=== PATIENT | female | born 1955 | race African-American/Black ===

== ENCOUNTER → 2016-11-08 | Outpatient (CLI) | payer BC ==
--- NOTE | 2016-11-09 12:19 | WOMENS IMAGING REPORT ---
EXAM DESCRIPTION: BILAT SCREENING MAMMO W/CAD COMPLETED DATE/TIME: 11/08/2016 9:34 am REASON FOR STUDY: SCREENING MAMMO Z12.31 ENCNTR SCREEN MAMMOGRAM FOR MALIGNANT NEOPLASM OF KIRSTEN COMPARISON: Multiple since 2009 TECHNIQUE: Standard craniocaudal and mediolateral oblique views of each breast recorded using digita l acquisition. LIMITATIONS: None. FINDINGS: No masses, calcifications or architectural distortion. No areas of suspicion. Read with the assistance of CAD. .[facility] - R2 Cenova Version 1.3 .[facility] Imaging - R2 Cenova Version 1.3 .[facility] - R2 Cenova Version 2.4 .[facility] [place] R2 Cenova Version 2.4 .[facility] - R2 Wood Chopper Version 9.2 IMPRESSION: NORMAL MAMMOGRAM. BIRADS 1. BREAST DENSITY: b. There are scattered areas of fibroglandular density. BIRAD: 1 NEGATIVE RECOMMENDATION: ROUTINE SCREENING Please consider bilateral screening tomosynthesis in October 2017 COMMENT: The patient has been notified of the results by letter per SA requirements. Additional no tification policies are in place for contacting patient with suspicious or incomplete findings. Quality ID #[id number]: The [employer] recommends an annual screening mammogram for women aged 40 years or over. This facility utilizes a reminder system to ensure that all patients receive reminder letters, and/or direct phone calls for appointments. This includes reminders for routine scr eening mammograms, diagnostic mammograms, or other Breast Imaging Interventions when appropriate. Th is patient will be placed in the appropriate reminder system. The [employer] (ACR) has developed recommendations for screening MRI of the breast s in certain patient populations, to be used in conjunction with mammography. Breast MRI surveillanc e may be appropriate for women with more than 20% lifetime risk of developing breast cancer as deter mined by genetic testing, significant family history of the disease, or history of mantle radiation f or Hodgkins Disease. ACR Practice Guidelines 2008. TECHNICAL DOCUMENTATION: FINDING NUMBER: (1) ASSESSMENT: (1) JOB ID: [id number] [employer]- All Rights Reserved
== END ==
LOC: WI 09:17
PROVIDERS: ATTEND Physician Assistant
DX: Z12.31 Encounter for screening mammogram for malignant neoplasm of breast (principal)
CPT/HCPCS: 77067; G0202

== ENCOUNTER 2018-01-09 00:01 | Emergency (ER) | payer SELFPAY ==
--- NOTE | 2018-01-09 01:47 | RADIOLOGY REPORT (SQ) ---
PROCEDURE: X-RAY CHEST TWO VIEWS CLINICAL HISTORY: syncope INDICATION: Same as above COMPARISON: None TECHNIQUE: The study was done on 01/09/2018 at 1:57 AM PA and and lateral chest radiographs were obtained. FINDINGS: The lung hernandez are well inflated. There are no discrete airspace infiltrates, pneumothoraces or pleural effusions. The pulmonary vascularity is normal The cardiomediastinal silhouette is unremarkable for patient's age and sex. IMPRESSION: There is no acute pleural-parenchymal process seen in the imaged lung hernandez. Place of interpretation: [facility].
--- NOTE | 2018-01-09 01:49 | RADIOLOGY REPORT (SQ) ---
EXAM DESCRIPTION: XR ELBOW 3 VIEWS COMPLETED DATE/TME: 01/09/2018 00:51 CLINICAL HISTORY: 62 years, Female, elbow wrist pain after fall COMPARISON: None. NUMBER OF VIEWS: Three TECHNIQUE: Three views of the right elbow were done LIMITATIONS: None. FINDINGS: There is no gross evidence of acute fractures involving the right elbow joint. However there is presence of a positive posterior fat-pad sign suspicious for occult fracture involving the right elbow joint. Degenerative osteophyte formation is seen along the coronoid process of the proximal right ulna IMPRESSION: There is no gross evidence of acute fractures involving the right elbow joint. However there is presence of a positive posterior fat-pad sign suspicious for occult fracture involving the right elbow joint, which can be further assessed with a dedicated CT examination of the right elbow. 2011 [employer]- All Rights Reserved
--- NOTE | 2018-01-09 01:50 | RADIOLOGY REPORT (SQ) ---
EXAM DESCRIPTION: XR WRIST 3 OR MORE VIEWS BILATERAL COMPLETED DATE/TME: 01/09/2018 00:51 CLINICAL HISTORY: 62 years, Female, syncope COMPARISON: None. NUMBER OF VIEWS: Three TECHNIQUE: Three views of the right wrist were done LIMITATIONS: None. FINDINGS: There is no fracture or dislocation involving the bones of the right wrist joint. The soft tissues are unremarkable IMPRESSION: Negative for acute bony trauma involving the right wrist 2010 [employer]- All Rights Reserved
[2018-01-09] MEDS ORDERED: KETOROLAC TROMETHAMINE INJ/PF 30 MG/1 ML SDV IV ONE (01:56)
[2018-01-09 02:08] LABS: ABSOLUTE BASOPHILS # (AUTO) 0.1 10^3/uL (0.0-0.2); ABSOLUTE EOSINOPHILS # (AUTO) 0.1 10^3/uL (0.0-0.6); ABSOLUTE NEUT (AUTO) 11.6 10^3/uL (1.7-8.2); BASOPHILS % (AUTO) 0.5 % (0-2); EOSINOPHILS % (AUTO) 0.8 % (0-6); HEMATOCRIT 38.2 % (36.0-47.0); HEMOGLOBIN 13.1 g/dL (12.0-15.5); LYMPHOCYTES % (AUTO) 7.2 % (13-45); MEAN CORPUSCULAR HEMOGLOBIN 30.7 pg (27.0-33.4); MEAN CORPUSCULAR HGB CONC 34.2 g/dL (32.0-36.0); MEAN CORPUSCULAR VOLUME 90 fl (80-97); MONOCYTES % (AUTO) 7.4 % (3-13); PLATELET COUNT 360 10^3/uL (150-450); RED BLOOD COUNT 4.25 10^6/uL (3.72-5.28); RED CELL DISTRIBUTION WIDTH 12.8 % (11.5-14.0); SEGMENTED NEUTROPHILS % (AUTO) 84.1 % (42-78); TOTAL CELLS COUNTED % (AUTO) 100 %; WHITE BLOOD COUNT 13.8 10^3/uL (4.0-10.5)
[2018-01-09 02:20] LABS: ANION GAP 13 (5-19); BLOOD UREA NITROGEN 15 mg/dL (7-20); CALCIUM 9.8 mg/dL (8.4-10.2); CARBON DIOXIDE 27 mmol/L (22-30); CHLORIDE 99 mmol/L (98-107); GLUCOSE 113 mg/dL (75-110); POTASSIUM 3.7 mmol/L (3.6-5.0); SODIUM 139.1 mmol/L (137-145)
--- NOTE | 2018-01-09 02:56 | RADIOLOGY REPORT (SQ) ---
CLINICAL HISTORY: fu xray with fat pad occult fx? COMPARISON: None. TECHNIQUE: CT UPPER EXTREMITY WITHOUT IV CONTRAST on 01/09/2018 1:57 AM CDT This exam was performed according to our departmental dose-optimization program, which includes automated exposure control, adjustment of the mA and/or kV according to patient size and/or use of iterative reconstruction technique. FINDINGS: There are no acute osseous findings. No suspicious bony lesions. Elbow joint is maintained with no significant degenerative changes. Surrounding soft tissues are unremarkable. IMPRESSION: No definite acute fracture.
--- NOTE | 2018-01-09 03:19 | ER Document Report ---
ED General - General Chief Complaint: Elbow Injury Stated Complaint: ELBOW PAIN Time Seen by Provider: 01/09/18 00:44 TRAVEL OUTSIDE OF THE [place] IN LAST 30 DAYS: No - HPI Patient complains to provider of: Syncope right elbow pain Notes: Patient coming in for chronic right elbow pain ongoing for the last 2-3 weeks. Patient states she had a fall approximately 3 weeks ago since that time significant right elbow pain. Patient states tonight when she was getting off the couch had again another severe episode of right elbow pain causing her to pass out patient states helped to the floor by her patient denies any hip pain chest pain abdominal pain prior to after during this episode. Patient otherwise denies any past medical history patient states she is uninsured therefore it is not seen a physician in quite some time. Patient otherwise is resting comfortably upon my evaluation denies any recent travel denies any fever chills nausea vomiting diarrhea - Related Data Allergies/Adverse Reactions: codeine [Codeine] Allergy (Verified 08/18/11 10:37) Past Medical History - Social History Smoking Status: Never Smoker Chew tobacco use (# tins/day): No Frequency of alcohol use: Rare Drug Abuse: None Family History: Reviewed & Not Pertinent Patient has suicidal ideation: No Patient has homicidal ideation: No - Past Medical History Cardiac Medical History: Reports: Hx Hypertension Renal/ Medical History: Denies: Hx Peritoneal Dialysis Review of Systems - Review of Systems Constitutional: No symptoms reported EENT: No symptoms reported Cardiovascular: Syncope Respiratory: No symptoms reported Gastrointestinal: No symptoms reported Genitourinary: No symptoms reported Female Genitourinary: No symptoms reported Musculoskeletal: Other - Right elbow pain Skin: No symptoms reported Hematologic/Lymphatic: No symptoms reported Neurological/Psychological: No symptoms reported -: Yes All other systems reviewed and negative Physical Exam - Vital signs Vitals: Temp Pulse Resp BP Pulse Ox 98.8 F 72 18 144/74 H 100 01/09/18 00:15 01/09/18 00:15 01/09/18 00:15 01/09/18 00:15 01/09/18 00:15 Interpretation: Normal - General General appearance: Appears well, Alert - HEENT Head: Normocephalic, Atraumatic Eyes: Normal Pupils: PERRL - Respiratory Respiratory status: No respiratory distress Chest status: Nontender Breath sounds: Normal Chest palpation: Normal - Cardiovascular Rhythm: Regular Heart sounds: Normal auscultation Murmur: No - Abdominal Inspection: Normal Distension: No distension Bowel sounds: Normal Tenderness: Nontender Organomegaly: No organomegaly - Back Back: Normal, Nontender - Extremities General upper extremity: Normal color, Normal temperature, Other - Left arm is unaffected. Patient has tenderness to palpation of the right elbow right wrist patient has decreased plastic roller strength because she states often the right elbow pain. Decreased range of motion at the elbow and at the wrist. Patient does have pulses and sensation distal to the elbow radial pulse or pulse felt the wrist. Slight swelling to the proximal posterior forearm difficult time doing pronating and supinating. No: Normal inspection General lower extremity: Normal inspection, Nontender, Normal color, Normal ROM , Normal temperature, Normal weight bearing. No: Sabra's sign - Neurological Neuro grossly intact: Yes Cognition: Normal Orientation: AAOx4 [place] Coma Scale Eye Opening: Spontaneous [place] Coma Scale Verbal: Oriented [place] Coma Scale Motor: Obeys Commands Deena Coma Scale Total: 15 Speech: Normal Motor strength normal: LUE, RUE, LLE, RLE Sensory: Normal - Psychological Associated symptoms: Normal affect, Normal mood - Skin Skin Temperature: Warm Skin Moisture: Dry Skin Color: Normal Course - Re-evaluation Re-evalutation: 01/09/18 03:16 X-rays concerning for possible occult fracture CT scan was performed and was read as negative unclear etiology for the patient's right elbow pain patient will be placed in a sling given the patient's information to the surgical worker for possible follow-up PCP. Patient was encouraged to perform range of motion exercises while at home. Laboratory studies not show any other clear etiology except for the patient's pain for syncopal episode. Patient has been stable while here in the ER. Patient will be discharged home follow-up - Vital Signs Vital signs: Temp Pulse Resp BP Pulse Ox 98.8 F 72 18 144/74 H 100 01/09/18 00:15 01/09/18 00:15 01/09/18 00:15 01/09/18 00:15 01/09/18 00:15 - Laboratory Result Diagrams: 01/09/18 01:50 01/09/18 01:50 Laboratory results interpreted by me: 01/09/18 01/09/18 01:50 01:50 WBC 13.8 H Seg Neutrophils % 84.1 H Lymphocytes % 7.2 L Absolute Neutrophils 11.6 H Glucose 113 H Discharge - Discharge Clinical Impression: Right elbow pain Syncope Qualifiers: Syncope type: unspecified Qualified Code(s): R55 - Syncope and collapse Condition: Good Disposition: HOME, SELF-CARE Instructions: Tendon Strain ([facility]), Muscle Strain ([facility]), Ice Packs ([facility]), Oral Narcotic Medication ([facility]), Syncopal Episode ([facility]) Additional Instructions: Laboratory studies today did not reveal any critical pathology for your syncopal episode this could have been due to the pain she experienced night in your elbow. We will place you in a sling I would recommend wearing a sling while out in public however when at home please go through range of motion exercises as demonstrated at bedside with your right elbow pertaining to hold the bolus tube and emptying the bolus tube also performing a curly motion with your elbow I would not recommend using any weights at this time. Please take medication as prescribed. Return to the ER for any changes in your symptoms or other concerns. I will give your information to our social security benefits interviewer please expect a phone call in the next 24-48 hours to see if we can help establish you follow-up care. Prescriptions: Ibuprofen [Motrin 600 mg Tablet] 600 mg PO Q8HP PRN #21 tablet PRN Reason: Tramadol HCl [Ultram 50 mg Tablet] 50 mg PO ASDIR PRN #20 tablet PRN Reason: Forms: Return to Work
[2018-01-09] MEDS ORDERED: TRAMADOL HCL 50 MG TABLET PO ONE (03:21)
[2018-01-09] MEDS ORDERED: LIDOCAINE 5% (700 MG) TRANSDERMAL ADH..PATCH TP ONE (03:21)
[2018-01-09] MEDS ORDERED: LIDOCAINE 5% (700 MG) TRANSDERMAL ADH..PATCH ONE (03:51)
[2018-01-09 04:09] VITALS: BP 134/72
--- NOTE | 2018-01-09 06:47 | EKG REPORT ---
SEVERITY:- ABNORMAL ECG - SINUS RHYTHM CONSIDER LEFT VENTRICULAR HYPERTROPHY ANTERIOR Q WAVES, POSSIBLY DUE TO LVH : Confirmed by: Valery Gee MD 09-Jan-2018 06:47:00
== END 2018-01-09 04:08 | disposition home or self-care (01) ==
LOC: ER 00:01
DX: S59.901A Unspecified injury of right elbow, initial encounter (principal); M25.521 Pain in right elbow; R55 Syncope and collapse; W19.XXXA Unspecified fall, initial encounter; I10 Essential (primary) hypertension
CPT/HCPCS: 93005; 99284; 96374; 36415; 85025; 80048; 84484; 71046; 73080; 73110; 73200; 93010; J1885